=== PATIENT | female | born 1945 | race Caucasian/White ===

== ENCOUNTER 2016-10-22 12:28 | Emergency (ER) | payer MEDICARE, BC ==
[~2016-10-22] VITALS: Ht 152.4 cm; Wt 75.0 kg
[~2016-10-22 12:28] MED LIST: ALBUTEROL2.5 MG/3 M IN; CALCIUM600 M3 PO; FLEXERIL5 M1 PO; HOME NEBULIZER; KEFLEX500 MG PO; LAXATIVE1 TAB PO; MEDDOSEPAK PO; OMEPRAZOLE20 MG PO; PHENERGAN12.5 MG/TA PO; PROAIR HFA IN; SYMBICORT1 AE1 IN; TESSALON200 MG PO; ZOSTAVAX IM
[2016-10-22] MEDS ORDERED: EC-NAPROSYN500 MG PO (12:36)
[2016-10-22 13:28] VITALS: BP 122/81
== END 2016-10-22 13:27 | disposition home or self-care (01) ==
LOC: ED 12:28
DX: S93.402A Sprain of unspecified ligament of left ankle, initial encounter (principal); W17.2XXA Fall into hole, initial encounter; Y93.H2 Activity, gardening and landscaping; Y92.007 Garden or yard of unspecified non-institutional (private) residence as the place of occurrence of the external cause

== ENCOUNTER 2018-07-14 08:24 | Day surgery (SDC) | payer MEDICARE, BC ==
[~2018-07-14 08:24] MED LIST changes: +EC-NAPROSYN500 MG PO; +SYNTHROID25 MCG PO
[2018-07-14 10:29] VITALS: BP 112/72
== END 2018-07-14 10:33 | disposition home or self-care (01) ==
LOC: ENDO 08:24
PROVIDERS: ATTEND Surgery
PROC: 0DB78ZX Excision of Stomach, Pylorus, Via Natural or Artificial Opening Endoscopic, Diagnostic (ICD-10-PCS; principal; 2018-07-14)
DX: K21.9 Gastro-esophageal reflux disease without esophagitis (principal); K44.9 Diaphragmatic hernia without obstruction or gangrene; K29.60 Other gastritis without bleeding; K22.8 Other specified diseases of esophagus